=== PATIENT | female | born 1975 | race African-American/Black ===

== ENCOUNTER 2018-04-15 07:24 | Emergency (ER) | payer OTHER ==
[~2018-04-15] VITALS: Ht 170.2 cm; Wt 103.0 kg
[2018-04-15 07:32] VITALS: BP 143/86
[2018-04-15] MEDS ORDERED: Acetaminophen 500mg (ES) tab ORAL ONE (08:00)
[2018-04-15] MEDS ORDERED: Ketorolac 30mg Inj IV ONE (08:00)
[2018-04-15] MEDS ORDERED: Bicillin LA 1.2MMU/2ML SYR IM ONE (08:00)
[2018-04-15] MEDS ORDERED: Solu-MEDROL 125mg Inj IVP ONE (08:00)
--- NOTE | 2018-04-15 08:10 | Emergency Room Report ---
History of Present Illness General Chief Complaint: Flu Like Symptoms Source: Patient Present Illness HPI Patient complains of sore throat, ear pain, body aches and cough for the past 2 days. She denies nausea or vomiting. She denies chest pain or shortness of breath. She has had chills. She denies headache or neck pain. She denies abdominal pain. She denies dysuria or hematuria. She did get the the influenza vaccine. No other complaints. Allergies: Coded Allergies: No Known Allergies (Unverified , 04/15/18) Patient History Past Medical History: none, see triage record Past Surgical History: brian Social History: Denies: smoking, alcohol use, drug use Now: No Reviewed Nursing Documentation: PMH: Agreed; PSxH: Agreed Nursing Documentation-PMH Past Medical History: No History, Except For Review of Systems All Other Systems: negative except mentioned in HPI Physical Exam Vital Signs Date Time Temp Pulse Resp B/P (MAP) Pulse Ox O2 Delivery O2 Flow Rate FiO2 04/15/18 07:30 100.2 118 20 143/86 98 Room Air Sp02 EP Interpretation: reviewed, normal General Appearance: no apparent distress, alert, GCS 15, non-toxic Head: normocephalic, atraumatic Eyes: bilateral eye normal inspection, bilateral eye PERRL ENT: hearing grossly normal, no angioedema, normal voice, TMs + canals normal, moist mucus membranes, tonsillar swelling, pharyngeal erythema Neck: full range of motion, supple/symm/no masses Respiratory: chest non-tender, lungs clear, normal breath sounds, no respiratory distress, no retraction, no accessory muscle use, speaking full sentences Cardiovascular #1: regular rate, rhythm, no edema Gastrointestinal: normal bowel sounds, non tender, soft, non-distended, no guarding, no rebound Rectal: deferred Musculoskeletal: back normal, gait/station normal, normal range of motion, non- tender Neurologic: alert, oriented x3, responsive, motor strength/tone normal, sensory intact, speech normal Psychiatric: judgement/insight normal, memory normal, mood/affect normal, no suicidal/homicidal ideation Skin: normal color, no rash, warm/dry, well hydrated Medical Decision Making Diagnostic Impression: Primary Impression: Pharyngitis Additional Impressions: Tonsillitis Fever ER Course This patient has a clinical presentation consistent with pharyngitis with tonsillitis (kissing tonsils). There is no evidence of peritonsillar abscess or deep neck abscess. There is no airway edema. The patient is instructed to get [id number] lozenges and Cepacol throat spray. The patient was treated as a strep tonsillitis and was given IM penicillin and IV Solu-Medrol for the swelling. I will place the patient on a Medrol Dosepak and ibuprofen for an anti-inflammatory and pain medication. The patient was given return precautions and followup instructions. Influenza A/B negative. Monospot pending. Chest X-Ray Diagnostic Results Chest X-Ray Diagnostic Results : Chest X-Ray Ordered: Yes # of Views/Limited/Complete: 1 View Indication: Other - cough EP Interpretation: Yes Interpretation: no consolidation, no effusion, no pneumothorax, no acute cardiopulmonary disease Impression: No acute disease Electronically Signed by: Vidya Last Vital Signs Date Time Temp Pulse Resp B/P (MAP) Pulse Ox O2 Delivery O2 Flow Rate FiO2 04/15/18 07:30 100.2 118 20 143/86 98 Room Air Status: improved Disposition: HOME, SELF-CARE Condition: Improved Leslie Moya DO Apr 15, 2018 08:10
[2018-04-15] MEDS ORDERED: MEDROL DOSEPAK4 MG ORAL (10:27)
[2018-04-15] MEDS ORDERED: IBUPROFEN800 MG ORAL (10:27)
[2018-04-15 10:40] VITALS: BP 161/104
[2018-04-15 10:45] VITALS: BP 161/104
--- NOTE | 2018-04-15 11:06 | Diagnostic Imaging Report ---
Indication: Cough Technique: One view of the chest Comparison: Findings: Lungs and pleural spaces are clear. Heart size is normal Impression: No acute process
== END 2018-04-15 10:45 | disposition home or self-care (01) ==
LOC: EMR 07:56
DX: J02.9 Acute pharyngitis, unspecified (principal); J03.90 Acute tonsillitis, unspecified; R05 Cough; M79.10 Myalgia, unspecified site; H92.09 Otalgia, unspecified ear
CPT/HCPCS: 71045; 86710; 96361; 96372; 96374; 96375; 99284; J0561; J1885; J2930

== ENCOUNTER 2018-04-18 01:08 | Emergency (ER) | payer OTHER ==
[~2018-04-18] VITALS: Ht 170.2 cm; Wt 101.2 kg
[~2018-04-18 01:08] MED LIST: IBUPROFEN800 MG ORAL; MEDROL DOSEPAK4 MG ORAL
[2018-04-18 01:25] VITALS: BP 138/94
[2018-04-18] MEDS ORDERED: AUGMENTIN 875-1 EAC1 ORAL (01:39)
[2018-04-18] MEDS ORDERED: Augmentin 875mg Tab ORAL ONE (01:45)
[2018-04-18 04:16] VITALS: BP 129/88
[2018-04-18 04:18] VITALS: BP 129/88
--- NOTE | 2018-04-18 06:15 | Emergency Room Report ---
History of Present Illness General Chief Complaint: Sore Throat Source: Patient Present Illness HPI 42-year-old female presents ED for evaluation. Complaining of sore throat 3 days. 10 out of 10, throbbing, nonradiating. Hurts to swallow. Was seen here 3 days ago and was given penicillin shot and discharged with steroids. States that her symptoms are not improving. States is trouble swallowing. Trouble talking. Denies shortness of breath. No other aggravating relieving factors. Denies any other associated symptoms Allergies: Coded Allergies: No Known Allergies (Unverified , 04/15/18) Patient History Past Medical History: none Past Surgical History: none Pertinent Family History: none Social History: Denies: smoking, alcohol use, drug use Last Menstrual Period: 2003 Now: No Immunizations: UTD Reviewed Nursing Documentation: PMH: Agreed; PSxH: Agreed Nursing Documentation-PMH Past Medical History: No Stated History Review of Systems All Other Systems: negative except mentioned in HPI Physical Exam Vital Signs Date Time Temp Pulse Resp B/P (MAP) Pulse Ox O2 Delivery O2 Flow Rate FiO2 04/18/18 01:21 99.5 101 18 138/94 98 Room Air Sp02 EP Interpretation: reviewed, normal General Appearance: no apparent distress, alert, GCS 15, non-toxic Head: normocephalic Eyes: bilateral eye normal inspection, bilateral eye PERRL ENT: hearing grossly normal, no angioedema, normal voice, TMs + canals normal, uvula midline, tonsillar swelling, pharyngeal erythema Neck: full range of motion, supple, no meningismus, supple/symm/no masses Respiratory: chest non-tender, lungs clear, normal breath sounds, speaking full sentences Cardiovascular #1: normal inspection Gastrointestinal: normal inspection Rectal: deferred Genitourinary: no CVA tenderness Musculoskeletal: normal inspection Neurologic: alert, oriented x3, responsive, motor strength/tone normal, sensory intact, speech normal Psychiatric: normal inspection Skin: normal inspection Lymphatic: normal inspection Medical Decision Making Diagnostic Impression: Primary Impression: Pharyngitis Qualified Codes: J02.9 - Acute pharyngitis, unspecified ER Course Hospital Course 42-year-old female presents to ED complaining of sore throat Differential diagnoses include: URI, pharyngitis, otitis media Clinical course Patient placed on stretcher. After initial history, physical exam reveals a female in no acute distress. Bilateral TM unremarkable. There is pharyngeal erythema w/ tonsillar swelling. + lymphadenopathy. Given the symptoms do not improve with IM penicillin and steroids I will order a soft tissue neck x-ray to rule out retropharyngeal abscess X-ray shows no evidence of retropharyngeal abscess. Reassurance given to patient. Given Augmentin here. We'll discharge with Augmentin. Recommend close follow-up with PMD. Recommend ENT as outpatient Diagnosis - pharyngitis Stable and discharged home with prescriptions for augmentin. Instructed to followup with PMD. return to ED if symptoms recur or worsen Last Vital Signs Date Time Temp Pulse Resp B/P (MAP) Pulse Ox O2 Delivery O2 Flow Rate FiO2 04/18/18 04:18 99.1 87 18 129/88 99 Room Air Status: improved Disposition: HOME, SELF-CARE Condition: Stable Scripts Amoxicillin/Potassium Clav 875-125* (AUGMENTIN 875-125 TABLET*) 1 Each Tablet 1 TAB ORAL TWICE A DAY for 10 Days, TAB Prov: Kyle Mace MD 04/18/18 Referrals: [facility]ERR[facility] (PCP) Patient Instructions: Tonsillitis Kyle Mace MD Apr 18, 2018 06:14
--- NOTE | 2018-04-18 10:39 | Diagnostic Imaging Report ---
Indication: Pain and swelling in tonsils for one week Technique: 2 views of the neck with soft tissue technique Comparison: none Findings: No prevertebral soft tissue swelling. No epiglottic enlargement or glottic narrowing. No hypopharyngeal distention. No radiopaque foreign body. Impression: Negative This agrees with the preliminary interpretation provided overnight by [facility] teleradiology service.
== END 2018-04-18 04:19 | disposition home or self-care (01) ==
LOC: EMR 01:46
DX: J02.9 Acute pharyngitis, unspecified (principal)
CPT/HCPCS: 70360; 99283

== ENCOUNTER 2018-04-21 21:10 | Emergency (ER) | payer OTHER ==
[~2018-04-21] VITALS: Ht 170.2 cm; Wt 113.4 kg
[~2018-04-21 21:10] MED LIST changes: +AUGMENTIN 875-1 EAC1 ORAL
--- NOTE | 2018-04-21 21:19 | Emergency Room Report ---
History of Present Illness General Chief Complaint: Dyspnea/Respdistress Source: Patient, Medical Record Present Illness HPI This a 42-year-old female with history anxiety and cholecystectomy. She presents with chief complaint of shortness of breath, abdominal pain, and back pain. She was treated for pharyngitis/strep throat a week ago. Was placed on Augmentin and steroid. She still feeling hoarseness and sore throat. The last few days she's complaining of back pain. Worse with movement. No fever chills but no nausea no vomiting. Now with abdominal pain and feeling short of breath. Onset today. Pain is 9 out of 10. Nothing made it better. Movement makes it worse. No other complaint. Allergies: Coded Allergies: No Known Allergies (Unverified , 04/15/18) Patient History Past Medical History: see triage record, old chart reviewed, psych hx Past Surgical History: brian Pertinent Family History: none Social History: Denies: smoking Last Menstrual Period: n/a Now: No Immunizations: other Reviewed Nursing Documentation: PMH: Agreed; PSxH: Agreed Review of Systems Eye: Denies: eye pain, blurred vision ENT: Denies: ear pain, nose congestion, throat swelling Respiratory: Reports: shortness of breath; Denies: cough Cardiovascular: Denies: chest pain, palpitations Gastrointestinal: Reports: abdominal pain; Denies: diarrhea, nausea, vomiting Musculoskeletal: Reports: back pain; Denies: joint pain Skin: Denies: rash Neurological: Denies: headache, numbness Endocrine: Denies: increased thirst, increased urine Hematologic/Lymphatic: Denies: easy bruising All Other Systems: negative except mentioned in HPI Physical Exam vital signs unremarkable Sp02 EP Interpretation: reviewed, normal General Appearance: well appearing, no apparent distress, alert, obese Head: normocephalic, atraumatic Eyes: bilateral eye PERRL, bilateral eye EOMI ENT: hearing grossly normal, normal pharynx Neck: full range of motion, supple, no meningismus Respiratory: chest non-tender, lungs clear, normal breath sounds Cardiovascular #1: regular rate, rhythm, no murmur Gastrointestinal: normal bowel sounds, non tender, no mass, no organomegaly, no bruit, non-distended Musculoskeletal: back normal - Right flank tenderness, gait/station normal, normal range of motion Neurologic: alert, oriented x3 Psychiatric: anxious Skin: warm/dry Medical Decision Making Diagnostic Impression: Primary Impression: Dyspnea Qualified Codes: R06.00 - Dyspnea, unspecified Additional Impressions: Abdominal pain Qualified Codes: R10.84 - Generalized abdominal pain Back pain Qualified Codes: M54.6 - Pain in thoracic spine ER Course Patient with dyspnea. This is most likely anxiety related since she was hyperventilating. Better after Ativan. Lungs are clear. No evidence of ACS, PE, dissection to name a few. Abdominal exam is also benign. No evidence of infection. We'll discharge home. Chest X-Ray Diagnostic Results Chest X-Ray Diagnostic Results : Chest X-Ray Ordered: Yes # of Views/Limited/Complete: 1 View Indication: Chest Pain EP Interpretation: Yes Interpretation: no consolidation, no effusion, no pneumothorax, no acute cardiopulmonary disease Impression: No acute disease Electronically Signed by: Dionte Mcmahon MD Status: improved Disposition: HOME, SELF-CARE Condition: Stable Scripts Ibuprofen* (MOTRIN*) 600 Mg Tablet 600 MG ORAL THREE TIMES A DAY, #30 TAB 0 Refills Prov: Dionte Mcmahon MD 04/21/18 Patient Instructions: Shortness of Breath, [id number] Additional Instructions: Follow-up with your doctor in 7 days. Return if symptom worsen. Dionte Mcmahon MD Apr 21, 2018 21:19
[2018-04-21] MEDS ORDERED: Ketorolac 30mg Inj IV ONE (21:30)
[2018-04-21] MEDS ORDERED: LORazepam Inj 2mg/ml 1ml IV ONE (21:30)
[2018-04-21 21:49] LABS: APPEARANCE,URINE CLEAR; BASOPHILS % (AUTO) 0.7 % (0.0-2.0); BILIRUBIN, URINE NEGATIVE (NEGATIVE); EOSINOPHILS % (AUTO) 1.8 % (0.0-3.0); GLUCOSE, URINE (UA) NEGATIVE (NEGATIVE); HEMATOCRIT 38.7 % (37.0-47.0); HEMOGLOBIN 12.5 G/DL (12.0-16.0); KETONES,URINE NEGATIVE (NEGATIVE); LEUKOCYTE ESTERASE ,URINE 1+ (NEGATIVE); LYMPHOCYTES % (AUTO) 42.2 % (20.0-45.0); MEAN CORPUSCULAR VOLUME 84 FL (80-99); MONOCYTES % (AUTO) 12.5 % (1.0-10.0); NEUTROPHILS % (AUTO) 42.8 % (45.0-75.0); NITRITE,URINE NEGATIVE (NEGATIVE); PH,URINE 7 (4.5-8.0); PLATELET COUNT 339 K/UL (150-450); PROTEIN,URINE 1+ (NEGATIVE); RED BLOOD COUNT 4.62 M/UL (4.20-5.40); UROBILINOGEN,URINE 4 MG/DL (0.0-1.0); WHITE BLOOD COUNT 3.9 K/UL (4.8-10.8)
[2018-04-21 21:53] LABS: COLOR,URINE YELLOW
[2018-04-21 22:06] LABS: ANION GAP 11 mmol/L (5-15); BLOOD UREA NITROGEN 9 mg/dL (7-18); CARBON DIOXIDE 28 MMOL/L (21-32); CHLORIDE 95 MMOL/L (98-107); CREATININE 0.8 MG/DL (0.55-1.30); POTASSIUM 3.2 MMOL/L (3.5-5.1); SODIUM 134 MMOL/L (136-145)
[2018-04-21 22:10] LABS: ALANINE AMINOTRANSFERASE 52 U/L (12-78); ALBUMIN 3.4 G/DL (3.4-5.0); ALBUMIN/GLOBULIN RATIO 0.6 (1.0-2.7); ALKALINE PHOSPHATASE 133 U/L (46-116); ASPARTATE AMINO TRANSFERASE 52 U/L (15-37)
[2018-04-21 22:45] VITALS: BP 146/85
[2018-04-21] MEDS ORDERED: IBUPROFEN600 MG ORAL (23:05)
[2018-04-21 23:21] VITALS: BP 146/85
--- NOTE | 2018-04-22 10:56 | Diagnostic Imaging Report ---
Indication: Shortness of breath Technique: One view of the chest Comparison: 04/15/2018 Findings: No acute infiltrates, effusions, or congestion. Tortuous calcified aorta. Normal heart size. Upper mediastinum unremarkable. Impression: No acute process.
== END 2018-04-21 23:26 | disposition home or self-care (01) ==
LOC: EMR 21:41
DX: R06.00 Dyspnea, unspecified (principal); R10.84 Generalized abdominal pain; M54.9 Dorsalgia, unspecified; F41.9 Anxiety disorder, unspecified; Z90.49 Acquired absence of other specified parts of digestive tract
CPT/HCPCS: 36415; 71045; 80053; 81003; 81025; 83690; 85025; 96361; 96374; 96375; 99284; J1885

== ENCOUNTER 2018-07-06 09:07 | Emergency (ER) | payer OTHER ==
[~2018-07-06] VITALS: Ht 170.2 cm; Wt 90.7 kg
[~2018-07-06 09:07] MED LIST changes: +IBUPROFEN600 MG ORAL
[2018-07-06] MEDS ORDERED: LORAZEPAM0.5 MG ORAL (09:21)
--- NOTE | 2018-07-06 09:28 | NUR ---
ED Nurse Note: Patient came in due to palpitations and chest pain started this morning. Pt states that she felt her "heart racing". Pt has hx of anxiety and taking ativan at home. Unknown trigger. Pt is AAO x4, ambulates with steady gait with non labored breathing. Attached to manager cardiac cath and NSR.
--- NOTE | 2018-07-06 09:50 | NUR ---
ED Nurse Note: Blood drawn and sent. Warm blankets were provided.
[2018-07-06 09:51] VITALS: BP 120/87
[2018-07-06 09:59] LABS: HEMATOCRIT 34.8 % (37.0-47.0); HEMOGLOBIN 11.4 G/DL (12.0-16.0); MEAN CORPUSCULAR VOLUME 92 FL (80-99); PLATELET COUNT 272 K/UL (150-450); RED BLOOD COUNT 3.79 M/UL (4.20-5.40); RED CELL DISTRIBUTION WIDTH 16.7 % (11.6-14.8); WHITE BLOOD COUNT 2.4 K/UL (4.8-10.8)
[2018-07-06 10:08] LABS: ANION GAP 13 mmol/L (5-15); BLOOD UREA NITROGEN 10 mg/dL (7-18); CALCIUM 8.6 MG/DL (8.5-10.1); CARBON DIOXIDE 25 MMOL/L (21-32); CHLORIDE 100 MMOL/L (98-107); CREATININE 0.9 MG/DL (0.55-1.30); POTASSIUM 3.5 MMOL/L (3.5-5.1); SODIUM 138 MMOL/L (136-145)
[2018-07-06 10:13] LABS: ALANINE AMINOTRANSFERASE 133 U/L (12-78); ALBUMIN 3.4 G/DL (3.4-5.0); ALBUMIN/GLOBULIN RATIO 0.8 (1.0-2.7); ALKALINE PHOSPHATASE 108 U/L (46-116); ASPARTATE AMINO TRANSFERASE 315 U/L (15-37); BILIRUBIN,TOTAL 0.9 MG/DL (0.2-1.0)
--- NOTE | 2018-07-06 10:15 | NUR ---
ED Nurse Note: Pt is more relaxed and stable at this time. Denies CP. VSS.
[2018-07-06 10:54] VITALS: BP 132/76
--- NOTE | 2018-07-06 10:54 | NUR ---
ER Nurse Note: Pt cleared for discharge by ER MD. DC instructions was gien and explained to pt and verbalized understanding of teachings. All medical devices such as ID band/IV removed. Pt AAO x4, ambulatory and left with all personal belongings.
--- NOTE | 2018-07-06 13:49 | Emergency Room Report ---
History of Present Illness General Chief Complaint: Chest Pain Source: Patient Present Illness HPI 42-year-old female presents to ED for evaluation. Complaining of palpitations and chest pain area started this morning. Note some palpitations at this time. Denies any chest pain at this time. Pain was 5 out of 10, dull, nonradiating. States she has history of anxiety. Was recently started on Ativan for her anxiety. Denies smoking or drug use. Denies a history of hypertension or diabetes. No other aggravating relieving factors. Denies any other associated symptoms Allergies: Coded Allergies: No Known Allergies (Unverified , 04/15/18) Patient History Past Medical History: psych hx Past Surgical History: none Pertinent Family History: none Social History: Denies: smoking, alcohol use, drug use Last Menstrual Period: 2013/Depo shot Now: No Immunizations: UTD Reviewed Nursing Documentation: PMH: Agreed; PSxH: Agreed Nursing Documentation-PMH Past Medical History: No History, Except For Review of Systems All Other Systems: negative except mentioned in HPI Physical Exam Vital Signs Date Time Temp Pulse Resp B/P (MAP) Pulse Ox O2 Delivery O2 Flow Rate FiO2 07/06/18 09:18 98.4 106 16 140/97 100 Room Air Sp02 EP Interpretation: reviewed, normal General Appearance: no apparent distress, alert, GCS 15, non-toxic Head: normocephalic, atraumatic Eyes: bilateral eye normal inspection, bilateral eye PERRL ENT: hearing grossly normal, normal pharynx, no angioedema, normal voice Neck: full range of motion, supple/symm/no masses Respiratory: chest non-tender, lungs clear, normal breath sounds, speaking full sentences Cardiovascular #1: regular rate, rhythm, no edema Cardiovascular #2: 2+ carotid (R), 2+ carotid (L), 2+ radial (R), 2+ radial (L) , 2+ dorsalis pedis (R), 2+ dorsalis pedis (L) Gastrointestinal: normal bowel sounds, non tender, soft, non-distended, no guarding, no rebound Rectal: deferred Genitourinary: normal inspection, no CVA tenderness Musculoskeletal: back normal, gait/station normal, normal range of motion, non- tender Neurologic: alert, oriented x3, responsive, motor strength/tone normal, sensory intact, speech normal Psychiatric: judgement/insight normal, memory normal, mood/affect normal, no suicidal/homicidal ideation Reflexes: 3+ bicep (R), 3+ bicep (L), 3+ tricep (R), 3+ tricep (L), 3+ knee (R) , 3+ knee (L) Skin: normal color, no rash, warm/dry, well hydrated Lymphatic: no adenopathy Medical Decision Making Diagnostic Impression: Primary Impression: Palpitations ER Course Hospital Course 42-year-old F presents ED complaining of palpitations Differential diagnoses include: afib, Vtach, SVT, anxiety, dehydration Clinical course Patient placed on stretcher. After initial history and physical I ordered labs , EKG, IVFs. labs reviewed- all electrolytes normal, troponins negative, no leukocytosis, hemoglobin/hematocrit stable EKG - NSR, no acute ischemic changes interpreted by me Discussed findings with patient. Reassurance given. There are no cardiac risk factors. Blood pressure heart rate within normal limits during ED course. Troponins negative. EKG normal. Likely anxiety. Safe for discharge close outpatient follow-up. States she has a PMD I. I feel this is a highly complex case requiring extensive working including EKG/Rhythm strip, Xray/CT/US, Blood/urine lab work, repeat exams while in ED, and administration of strong opiates/narcotics for pain control, admission to hospital or close patient follow up. Diagnosis - palpitations Stable and discharged to home. Instructed to followup with PMD. Return to ED if symptoms recur or worsen Labs Test 07/06/18 09:38 White Blood Count 2.4 K/UL (4.8-10.8) Red Blood Count 3.79 M/UL (4.20-5.40) Hemoglobin 11.4 G/DL (12.0-16.0) Hematocrit 34.8 % (37.0-47.0) Mean Corpuscular Volume 92 FL (80-99) Mean Corpuscular Hemoglobin 30.1 PG (27.0-31.0) Mean Corpuscular Hemoglobin Concent 32.8 G/DL (32.0-36.0) Red Cell Distribution Width 16.7 % (11.6-14.8) Platelet Count 272 K/UL (150-450) Mean Platelet Volume 6.2 FL (6.5-10.1) Neutrophils (%) (Auto) % (45.0-75.0) Lymphocytes (%) (Auto) % (20.0-45.0) Monocytes (%) (Auto) % (1.0-10.0) Eosinophils (%) (Auto) % (0.0-3.0) Basophils (%) (Auto) % (0.0-2.0) Differential Total Cells Counted 100 Neutrophils % (Manual) 39 % (45-75) Lymphocytes % (Manual) 55 % (20-45) Monocytes % (Manual) 6 % (1-10) Eosinophils % (Manual) 0 % (0-3) Basophils % (Manual) 0 % (0-2) Band Neutrophils 0 % (0-8) Platelet Estimate Adequate Platelet Morphology Normal Anisocytosis 1+ Sodium Level 138 MMOL/L (136-145) Potassium Level 3.5 MMOL/L (3.5-5.1) Chloride Level 100 MMOL/L (98-107) Carbon Dioxide Level 25 MMOL/L (21-32) Anion Gap 13 mmol/L (5-15) Blood Urea Nitrogen 10 mg/dL (7-18) Creatinine 0.9 MG/DL (0.55-1.30) Estimat Glomerular Filtration Rate > 60 mL/min (>60) Glucose Level 159 MG/DL (74-106) Calcium Level 8.6 MG/DL (8.5-10.1) Total Bilirubin 0.9 MG/DL (0.2-1.0) Aspartate Amino Transf (AST/SGOT) 315 U/L (15-37) Alanine Aminotransferase (ALT/SGPT) 133 U/L (12-78) Alkaline Phosphatase 108 U/L (46-116) Troponin I 0.000 ng/mL (0.000-0.056) Total Protein 7.5 G/DL (6.4-8.2) Albumin 3.4 G/DL (3.4-5.0) Globulin 4.1 g/dL Albumin/Globulin Ratio 0.8 (1.0-2.7) EKG Diagnostic Results Rate: normal Rhythm: NSR ST Segments: no acute changes ASA given to the pt in ED: No Rhythm Strip Diag. Results EP Interpretation: yes Rhythm: NSR, no PVC's, no ectopy Last Vital Signs Date Time Temp Pulse Resp B/P (MAP) Pulse Ox O2 Delivery O2 Flow Rate FiO2 07/06/18 10:54 98.0 85 15 132/76 99 Room Air Status: improved Disposition: HOME, SELF-CARE Condition: Stable Patient Instructions: Palpitations, [id number] Kyle Mace MD Jul 06, 2018 13:49
--- NOTE | 2018-07-09 15:39 | Cardiology Report ---
APPROVED REPORT EKG Measurement Heart [id number] Normal sinus rhythm Cannot rule out Anterior infarct, age undetermined Abnormal ECG
== END 2018-07-06 10:54 | disposition home or self-care (01) ==
LOC: EMR 09:30
DX: R00.2 Palpitations (principal); R07.9 Chest pain, unspecified
CPT/HCPCS: 36415; 80053; 84484; 85007; 85025; 93005; 96360; 99284

== ENCOUNTER 2019-11-16 01:28 | Emergency (ER) | payer MEDICAID, OTHER ==
[~2019-11-16] VITALS: Ht 170.2 cm; Wt 95.7 kg
[~2019-11-16 01:28] MED LIST changes: +CYCLOBENZAPRINE10 MG ORAL; +IBU800 MG PO; +LIDODERM700 M1 TOPIC; +LORAZEPAM0.5 MG ORAL
--- NOTE | 2019-11-16 01:50 | NUR ---
ED Nurse Note: blood and urine collected and sent to lab
--- NOTE | 2019-11-16 01:53 | Emergency Room Report ---
History of Present Illness General Chief Complaint: Abdominal Pain Source: Patient Present Illness HPI This is a 44-year-old female who presents with chief plaint abdominal pain. Most of the pain is epigastric area. This been going on for 2 months. She saw her doctor already. Stool sample was positive for H. pylori and she was treated with antibiotics. She had a CAT scan a month ago and was negative. She is scheduled to see GI doctor next week. She came in tonight because pain was getting worse. Pain is sharp in nature. 10 out of 10. No nausea no vomiting. No fever chills. Nothing made it better. Nothing made it worse. No urinary complaint. Allergies: Coded Allergies: No Known Allergies (Unverified , 04/15/18) COVID-19 Screening Contact w/high risk pt: No Recent Travel to affected area: No Experienced COVID-19 symptoms?: No COVID-19 Testing performed ANIMAL FEEDER: No Patient History Past Medical History: see triage record, old chart reviewed Past Surgical History: other - Gastric bypass Pertinent Family History: none Social History: Denies: smoking Now: No Immunizations: other Reviewed Nursing Documentation: PMH: Agreed; PSxH: Agreed Nursing Documentation-PMH Hx Diabetes: No - hypothirodism Review of Systems Eye: Denies: eye pain, blurred vision ENT: Denies: ear pain, nose congestion, throat swelling Respiratory: Denies: cough, shortness of breath Cardiovascular: Denies: chest pain, palpitations Gastrointestinal: Reports: abdominal pain; Denies: diarrhea, nausea, vomiting Musculoskeletal: Denies: back pain, joint pain Skin: Denies: rash Neurological: Denies: headache, numbness Endocrine: Denies: increased thirst, increased urine Hematologic/Lymphatic: Denies: easy bruising All Other Systems: negative except mentioned in HPI Physical Exam Vital Signs Date Time Temp Pulse Resp B/P (MAP) Pulse Ox O2 Delivery O2 Flow Rate FiO2 11/16/19 01:36 99.1 109 22 139/82 (101) 98 Room Air Vitals normal Sp02 EP Interpretation: reviewed, normal General Appearance: well appearing, no apparent distress, alert, obese Head: normocephalic, atraumatic Eyes: bilateral eye PERRL, bilateral eye EOMI ENT: hearing grossly normal, normal pharynx Neck: full range of motion, supple, no meningismus Respiratory: chest non-tender, lungs clear, normal breath sounds Cardiovascular #1: regular rate, rhythm, no murmur Gastrointestinal: normal bowel sounds, no mass, no organomegaly, no bruit, non- distended, tenderness - Epigastric Musculoskeletal: back normal, normal range of motion, gait/station normal Psychiatric: mood/affect normal Medical Decision Making Diagnostic Impression: Primary Impression: Abdominal pain Qualified Codes: R10.13 - Epigastric pain Additional Impressions: Hypokalemia Elevated liver enzymes ER Course Patient with abdominal pain. No evidence of any obstruction or infection. No acute abdomen. Will discharge home. CT/MRI/US Diagnostic Results CT/MRI/US Diagnostic Results : Imaging Test Ordered: CT abdomen pelvis Impression Read by radiologist. Status post Elizabeth-en-Y surgery. No acute process. Last Vital Signs Date Time Temp Pulse Resp B/P (MAP) Pulse Ox O2 Delivery O2 Flow Rate FiO2 11/16/19 01:36 99.1 109 22 139/82 (101) 98 Room Air Status: improved Disposition: HOME, SELF-CARE Condition: Stable Scripts Hydrocodone/Acetaminophen 5-325* (HYDROCODONE/ACETAMINOPHEN 5-325*) 1 Each Tablet 1 TAB ORAL Q6H PRN for For Pain, #15 TAB 0 Refills Prov: Dionte Mcmahon MD 11/16/19 Omeprazole Magnesium (PRILOSEC OTC) 20 Mg Tablet. 20 MG ORAL DAILY, #30 TAB Prov: Dionte Mcmahon MD 11/16/19 Patient Instructions: Abdominal Pain, Adult Additional Instructions: Follow-up with your doctor in 7 days. Keep your appointment with your GI doctor for endoscopy. Return if symptoms worsen. Dionte Mcmahon MD Nov 16, 2019 01:53
[2019-11-16] MEDS ORDERED: Pantoprazole Inj IV ONE (02:00)
[2019-11-16] MEDS ORDERED: HYDROmorphone 1mg/ml Carpuject IVP ONE (02:00)
--- NOTE | 2019-11-16 02:00 | NUR ---
ED Nurse Note: pt went for ct
[2019-11-16 02:04] VITALS: BP 138/101
--- NOTE | 2019-11-16 02:15 | NUR ---
ED Nurse Note: pt back from ct
--- NOTE | 2019-11-16 02:37 | Diagnostic Imaging Report ---
EXAM: CT Abdomen and Pelvis Without Intravenous Contrast CLINICAL HISTORY: ABD PAIN TECHNIQUE: Axial computed tomography images of the abdomen and pelvis without intravenous contrast. CTDI is 12 mGy and DLP is 664 mGy-cm. One or more of the following dose reduction techniques were used: automated exposure control, adjustment of the mA and/or kV according to patient size, use of iterative reconstruction technique. Coronal and sagittal reformatted images were created and reviewed. COMPARISON: No relevant prior studies available. FINDINGS: Lung bases: Unremarkable. No mass. No consolidation. ABDOMEN: Liver: Hepatic steatosis, correlate to exclude steatohepatitis. Hepatic segment VII enhancing 1.9 focus of uncertain significance, recommend pelvic patient MRI abdomen without and with IV contrast. Further characterize. Gallbladder and bile ducts: Cholecystectomy. No ductal dilation. Pancreas: Unremarkable. No ductal dilation. Spleen: Unremarkable. No splenomegaly. Adrenals: Unremarkable. No mass. Kidneys and ureters: Unremarkable. No obstructing stones. No hydronephrosis. Stomach and bowel: Elizabeth-en-Y gastric bypass anatomy. No obstruction. No mucosal thickening. PELVIS: Appendix: No findings to suggest acute appendicitis. Bladder: Unremarkable. No stones. Reproductive: Unremarkable as visualized. ABDOMEN and PELVIS: Intraperitoneal space: Mild hazy mesenteric attenuation in the left mesentery is likely incidental and of likely no clinical significance, but could rarely represent focal proliferative disorder. Recommend follow- up IV and oral contrast-enhanced CT abdomen and pelvis in 6 months to document stability over time. No free air. No significant fluid collection. Bones/joints: No acute fracture. No dislocation. Soft tissues: Unremarkable. Vasculature: Unremarkable. No abdominal aortic aneurysm. Lymph nodes: Prominent mesenteric lymph nodes. This could be incidental, reactive, or could represent mesenteric adenitis in the proper context. IMPRESSION: 1. Elizabeth-en-Y gastric bypass anatomy. 2. Prominent mesenteric lymph nodes. This could be incidental, reactive, or could represent mesenteric adenitis in the proper context. 3. Mild hazy mesenteric attenuation in the left mesentery is likely incidental and of likely no clinical significance, but could rarely represent focal proliferative disorder. Recommend follow-up IV and oral contrast-enhanced CT abdomen and pelvis in 6 months to document stability over time. 4. Otherwise no acute abnormality definitively identified to account for patient presentation. 5. Hepatic segment VII enhancing 1.9 focus of uncertain significance, recommend pelvic patient MRI abdomen without and with IV contrast to further characterize. Considerations include adenoma, FNH, hemangioma. 6. Hepatic steatosis, correlate to exclude steatohepatitis. 7. Cholecystectomy.
[2019-11-16 03:00] LABS: BASOPHILS % (AUTO) 1.3 % (0.0-2.0); EOSINOPHILS % (AUTO) 0.8 % (0.0-3.0); HEMATOCRIT 37.8 % (37.0-47.0); HEMOGLOBIN 12.2 G/DL (12.0-16.0); LYMPHOCYTES % (AUTO) 48.7 % (20.0-45.0); MEAN CORPUSCULAR VOLUME 102 FL (80-99); MONOCYTES % (AUTO) 7.3 % (1.0-10.0); PLATELET COUNT 305 K/UL (150-450); RED BLOOD COUNT 3.69 M/UL (4.20-5.40); RED CELL DISTRIBUTION WIDTH 12.4 % (11.6-14.8); WHITE BLOOD COUNT 5.4 K/UL (4.8-10.8)
[2019-11-16 03:06] LABS: APPEARANCE,URINE CLEAR; BILIRUBIN, URINE NEGATIVE (NEGATIVE); GLUCOSE, URINE (UA) NEGATIVE (NEGATIVE); KETONES,URINE NEGATIVE (NEGATIVE); LEUKOCYTE ESTERASE ,URINE 1+ (NEGATIVE); NITRITE,URINE NEGATIVE (NEGATIVE); PH,URINE 6 (4.5-8.0); PROTEIN,URINE NEGATIVE (NEGATIVE); UROBILINOGEN,URINE 1 MG/DL (0.0-1.0)
[2019-11-16] MEDS ORDERED: PRILOSEC OTC20 MG ORAL (03:09)
[2019-11-16] MEDS ORDERED: HYDROCODON-ACE1 EA15 ORAL (03:09)
[2019-11-16 03:16] LABS: COLOR,URINE YELLOW
[2019-11-16] MEDS ORDERED: Morphine Sulfate 4mg/ml Inj (IV USE ONLY) IVP ONE (03:30)
[2019-11-16 03:35] VITALS: BP 137/77
[2019-11-16 03:38] LABS: BLOOD UREA NITROGEN 5 mg/dL (7-18); CARBON DIOXIDE 22 MMOL/L (21-32); CHLORIDE 106 MMOL/L (98-107); CREATININE 0.8 MG/DL (0.55-1.30); SODIUM 144 MMOL/L (136-145)
[2019-11-16 03:39] LABS: ALANINE AMINOTRANSFERASE 101 U/L (12-78); ALBUMIN 2.9 G/DL (3.4-5.0); ASPARTATE AMINO TRANSFERASE 220 U/L (15-37); CALCIUM 8.1 MG/DL (8.5-10.1)
[2019-11-16 03:40] LABS: ALBUMIN/GLOBULIN RATIO 0.7 (1.0-2.7); ALKALINE PHOSPHATASE 176 U/L (46-116); ANION GAP 16 mmol/L (5-15)
[2019-11-16 03:57] LABS: POTASSIUM 2.5 MMOL/L (3.5-5.1)
[2019-11-16 04:08] VITALS: BP 137/77
--- NOTE | 2019-11-16 04:08 | NUR ---
ER DISCHARGE NOTE: Patient is cleared to be discharged per ERMD, pt is aox4, on room air, with stable vital signs. pt was given dc and prescription instructions, pt was able to verbalize understanding, pt id band and iv site removed without complications. pt is able to ambulate with steady gait. pt took all belongings.
== END 2019-11-16 04:08 | disposition home or self-care (01) ==
LOC: EMR 01:55
DX: R10.13 Epigastric pain (principal); E87.6 Hypokalemia; R94.5 Abnormal results of liver function studies; E66.9 Obesity, unspecified; Z98.84 Bariatric surgery status; E03.9 Hypothyroidism, unspecified; Z68.33 Body mass index [BMI] 33.0-33.9, adult
CPT/HCPCS: 36415; 74176; 80053; 81003; 81025; 83690; 85025; 96361; 96374; 96375; J1170; J2270; J2405; J7030; S0164; Z7502; 99284; J8499

== ENCOUNTER 2020-02-03 12:45 | Emergency (ER) | payer OTHER ==
[~2020-02-03] VITALS: Ht 162.6 cm; Wt 97.1 kg
[~2020-02-03 12:45] MED LIST changes: +HYDROCODON-ACE1 EA15 ORAL; +PRILOSEC OTC20 MG ORAL
[2020-02-03 12:51] VITALS: BP 122/84
--- NOTE | 2020-02-03 12:52 | NUR ---
ED Nurse Note: PT walked in to ed for C/O swelling to left foot since 01/29/20. pt was told by her PMD (dr Cho) to come in [facility] to get her kidney function and other labs checked.
--- NOTE | 2020-02-03 13:19 | NUR ---
ED Nurse Note: blood and urine sample collected and sent to lab
[2020-02-03 13:42] LABS: BASOPHILS % (AUTO) 0.6 % (0.0-2.0); EOSINOPHILS % (AUTO) 0.1 % (0.0-3.0); HEMATOCRIT 33.2 % (37.0-47.0); HEMOGLOBIN 10.9 G/DL (12.0-16.0); LYMPHOCYTES % (AUTO) 21.9 % (20.0-45.0); MEAN CORPUSCULAR VOLUME 102 FL (80-99); MONOCYTES % (AUTO) 8.4 % (1.0-10.0); NEUTROPHILS % (AUTO) 69.1 % (45.0-75.0); PLATELET COUNT 214 K/UL (150-450); RED BLOOD COUNT 3.26 M/UL (4.20-5.40); RED CELL DISTRIBUTION WIDTH 13.4 % (11.6-14.8); WHITE BLOOD COUNT 9.4 K/UL (4.8-10.8)
--- NOTE | 2020-02-03 13:50 | Emergency Room Report ---
History of Present Illness General Chief Complaint: Edema Source: Patient (Bina Ojeda) Present Illness HPI 44-year-old female presents to the emergency department for evaluation of left leg swelling x1 week. Patient was seen by her primary care provider whom did u rinalysis and was concerned for her renal function and sent her to the emergency department for evaluation. Patient reports history of high blood pressure she takes an unknown medication. Patient also reports history of migraines she states she has been taking Tylenol with no relief of her current headache which is 8 out of 10 severity. She reports hx of migraines and reports this MULLINS is the same in character however not responding to oral Tylenol. Patient denies fevers or chills, nausea, vomiting, recent head injury, dizziness, neck pain/stiffness, chest pain or palpitations. Patient denies cardiac history. Patient reports she initially was evaluated by PCP for dark-colored urine. She denies dysuria, urinary frequency, urgency, or hematuria. She denies abdominal pain or tenderness. Pt. reports previously ETOH dependent, but has ceased x 3 months. (Bina Ojeda) Allergies: Coded Allergies: No Known Allergies (Unverified , 04/15/18) COVID-19 Screening Contact w/high risk pt: No Recent Travel to affected area: No Experienced COVID-19 symptoms?: No COVID-19 Testing performed PHOTOVOL[employer]IC POWER SYSTEMS ENGINEER: No (Bian Ojeda) Patient History Past Medical History: see triage record Past Surgical History: none Pertinent Family History: none Now: No Reviewed Nursing Documentation: PMH: Agreed; PSxH: Agreed (Bina Ojeda) Nursing Documentation-PMH Past Medical History: No History, Except For Hx Hypertension: Yes Hx Diabetes: No - hypothirodism (Bina Ojeda) Review of Systems All Other Systems: negative except mentioned in HPI (Bina Ojeda) Physical Exam Vital Signs Date Time Temp Pulse Resp B/P (MAP) Pulse Ox O2 Delivery O2 Flow Rate FiO2 02/03/20 12:46 97.7 96 19 116/83 (94) 100 Room Air Sp02 EP Interpretation: reviewed, normal General Appearance: no apparent distress, alert, GCS 15, non-toxic Head: normocephalic, atraumatic Eyes: bilateral eye normal inspection, bilateral eye PERRL ENT: hearing grossly normal, normal voice Neck: full range of motion Respiratory: chest non-tender, lungs clear, normal breath sounds, speaking full sentences Cardiovascular #1: regular rate, rhythm, normal capillary refill, edema - 1+ non pitting edema of the left LE Cardiovascular #2: 2+ dorsalis pedis (R), 2+ dorsalis pedis (L) Gastrointestinal: normal bowel sounds, non tender, soft, no guarding, no rebound, other - mild abdominal distention without tenderness Genitourinary: normal inspection, no CVA tenderness Musculoskeletal: back normal, normal range of motion, gait/station normal, non- tender, swelling - Left LE, non -pitting, no warmth/erythema Neurologic: alert, motor strength/tone normal, oriented x3, sensory intact, responsive, speech normal, grossly normal, no focal defects Psychiatric: judgement/insight normal Skin: no rash, normal color (Bina Ojeda) Medical Decision Making PA Attestation Dr. Moya Is my supervising Physician whom patient management has been discussed with. (Bina Ojeda) Diagnostic Impression: Primary Impression: Hepatitis Additional Impressions: Hypokalemia Leg edema, left Elevated INR ER Course [id number] female presents to the emergency department for evaluation of left leg swelling x1 week. Patient was seen by her primary care provider whom did urinalysis and was concerned for her renal function and sent her to the emergency department for evaluation. Patient reports history of high blood pressure she takes an unknown medication. Patient also reports history of migraines she states she has been taking Tylenol with no relief of her current headache which is 8 out of 10 severity. She reports hx of migraines and reports this MULLINS is the same in character however not responding to oral Tylenol. Patient denies fevers or chills, nausea, vomiting, recent head injury, dizziness, neck pain/stiffness, chest pain or palpitations. Patient denies cardiac history. Patient reports she initially was evaluated by PCP for dark- colored urine. She denies dysuria, urinary frequency, urgency, or hematuria. She denies abdominal pain or tenderness. Pt. reports previously ETOH dependent, but has ceased x 3 months. Ddx considered but are not limited to Cellulitis, DVT, varicose vein, PAD,Venous insufficiency, renal insufficiency, just to name a few Vital signs: are WNL, pt. is afebrile H&PE are most consistent with need to r/o acute DVT , Pt. is non-toxic in appearance, NAD. reporting MULLINS, no focal neurological deficits. No evidence to suggest acute abdomen. ORDERS: CMP: Elevated direct and indirect bilirubin. hypokalemia, elevated AST at 205, normal ALT. CBC with Diff: mild anemia PT/PTT: elevated 13.7, PT- 1.3 -UA: 2+ bili with presence of RBC's, few bacteria with moderate squamous cells is most likely contamination. - LE duplex U/s : Negative for acute DVT. ED INTERVENTIONS: - Reglan 10mg IV -Benadryl 50mg IV - 4mg Morphine IV - 40MEq KCL PO -7.5mg Morphine DISPOSITION: at this time pt. will be admitted, Attending physician is facilitating admission. to Dr. Sainz at [facility] for Hepatitis and Edema. Dr. Sainz agreed to admit the pt. and to continue pt. care management. Labs Test 02/03/20 13:10 02/03/20 13:12 02/03/20 13:30 Lipase 52 U/L (73-393) White Blood Count 9.4 K/UL (4.8-10.8) Red Blood Count 3.26 M/UL (4.20-5.40) Hemoglobin 10.9 G/DL (12.0-16.0) Hematocrit 33.2 % (37.0-47.0) Mean Corpuscular Volume 102 FL (80-99) Mean Corpuscular Hemoglobin 33.5 PG (27.0-31.0) Mean Corpuscular Hemoglobin Concent 32.9 G/DL (32.0-36.0) Red Cell Distribution Width 13.4 % (11.6-14.8) Platelet Count 214 K/UL (150-450) Mean Platelet Volume 5.8 FL (6.5-10.1) Neutrophils (%) (Auto) 69.1 % (45.0-75.0) Lymphocytes (%) (Auto) 21.9 % (20.0-45.0) Monocytes (%) (Auto) 8.4 % (1.0-10.0) Eosinophils (%) (Auto) 0.1 % (0.0-3.0) Basophils (%) (Auto) 0.6 % (0.0-2.0) Prothrombin Time 13.7 SEC (9.30-11.50) Prothromb Time International Ratio 1.3 (0.9-1.1) Activated Partial Thromboplast Time 30 SEC (23-33) Sodium Level 145 MMOL/L (136-145) Potassium Level 2.8 MMOL/L (3.5-5.1) Chloride Level 107 MMOL/L (98-107) Carbon Dioxide Level 27 MMOL/L (21-32) Anion Gap 4 mmol/L (5-15) Blood Urea Nitrogen 6 mg/dL (7-18) Creatinine 0.7 MG/DL (0.55-1.30) Estimat Glomerular Filtration Rate > 60 mL/min (>60) Glucose Level 96 MG/DL (74-106) Calcium Level 8.1 MG/DL (8.5-10.1) Total Bilirubin 3.0 MG/DL (0.2-1.0) Direct Bilirubin 2.5 MG/DL (0.0-0.3) Aspartate Amino Transf (AST/SGOT) 203 U/L (15-37) Alanine Aminotransferase (ALT/SGPT) 53 U/L (12-78) Alkaline Phosphatase 325 U/L (46-116) Total Protein 6.8 G/DL (6.4-8.2) Albumin 2.0 G/DL (3.4-5.0) Globulin 4.8 g/dL Albumin/Globulin Ratio 0.4 (1.0-2.7) Urine Color Brown Urine Appearance Slightly cloudy Urine pH 6 (4.5-8.0) Urine Specific Bouse 1.020 (1.005-1.035) Urine Protein 2+ (NEGATIVE) Urine Glucose (UA) Negative (NEGATIVE) Urine Ketones 1+ (NEGATIVE) Urine Blood 1+ (NEGATIVE) Urine Nitrite Negative (NEGATIVE) Urine Bilirubin 2+ (NEGATIVE) Urine Ictotest Positive (NEGATIVE) Urine Urobilinogen 8 MG/DL (0.0-1.0) Urine Leukocyte Esterase 1+ (NEGATIVE) Urine RBC 0-2 /HPF (0 - 2) Urine WBC 2-4 /HPF (0 - 2) Urine Squamous Epithelial Cells Many /LPF (NONE/OCC) Urine Bacteria Few /HPF (NONE) Urine Mucus Moderate /LPF (NONE/OCC) (Bina Ojeda) ER Course Please see above note. Concern over electrolyte abnormalities with evidence of hepatitis. Holding off on vitamin K even though initial ultrasound negative for DVT. Discussed with Dr. Sainz who accepts patient at [facility]. (Awais Lindquist MD) CT/MRI/US Diagnostic Results CT/MRI/US Diagnostic Results #1: Imaging Test Ordered: Venous duplex US of the Left LE Impression " Negative for acute DVT" --per official radiology report- Please see report for specific details. CT/MRI/US Diagnostic Results #2: Imaging Test Ordered: Abdominal US Impression "IMPRESSION: STUDY LIMITED DUE TO BOWEL GAS. ENLARGED FATTY LIVER. STATUS POST CHOLECYSTECTOMY". --Per official radiology report- Please see report for specific details. (Bina Ojeda) Last Vital Signs Date Time Temp Pulse Resp B/P (MAP) Pulse Ox O2 Delivery O2 Flow Rate FiO2 02/03/20 12:51 92 16 Room Air 02/03/20 12:51 97.7 122/84 100 Status: unchanged (Bina Ojeda) Last Vital Signs Date Time Temp Pulse Resp B/P (MAP) Pulse Ox O2 Delivery O2 Flow Rate FiO2 02/03/20 19:34 98.0 78 18 105/78 98 Nasal Cannula Status: improved (Awais Lindquist MD) Disposition: SHORT-TERM HOSP Condition: Serious Signed Out To: Dr. Sainz (Bina Ojeda) Referrals: [facility],REFERRING (PCP) Bina Ojeda Feb 03, 2020 13:50 Awais Lindquist MD Feb 03, 2020 16:49
[2020-02-03 13:52] LABS: INR 1.3 (0.9-1.1)
--- NOTE | 2020-02-03 14:00 | NUR ---
ED Nurse Note: venous duplex being done at bedside.
[2020-02-03 14:01] LABS: APPEARANCE,URINE SLIGHTLY CLOUDY; BILIRUBIN, URINE 2+ (NEGATIVE); COLOR,URINE BROWN; GLUCOSE, URINE (UA) NEGATIVE (NEGATIVE); KETONES,URINE 1+ (NEGATIVE); LEUKOCYTE ESTERASE ,URINE 1+ (NEGATIVE); PH,URINE 6 (4.5-8.0); PROTEIN,URINE 2+ (NEGATIVE); UROBILINOGEN,URINE 8 MG/DL (0.0-1.0)
[2020-02-03 14:02] LABS: ALANINE AMINOTRANSFERASE 53 U/L (12-78); ALBUMIN/GLOBULIN RATIO 0.4 (1.0-2.7); ALKALINE PHOSPHATASE 325 U/L (46-116); ANION GAP 4 mmol/L (5-15); ASPARTATE AMINO TRANSFERASE 203 U/L (15-37); BLOOD UREA NITROGEN 6 mg/dL (7-18); CALCIUM 8.1 MG/DL (8.5-10.1); CARBON DIOXIDE 27 MMOL/L (21-32); CHLORIDE 107 MMOL/L (98-107); CREATININE 0.7 MG/DL (0.55-1.30); POTASSIUM 2.8 MMOL/L (3.5-5.1); SODIUM 145 MMOL/L (136-145)
[2020-02-03 14:03] LABS: BILIRUBIN,DIRECT 2.5 MG/DL (0.0-0.3)
[2020-02-03 14:13] LABS: NITRITE,URINE NEGATIVE (NEGATIVE)
--- NOTE | 2020-02-03 14:13 | Diagnostic Imaging Report ---
EXAM: ULTRASOUND Venous Duplex Lower Ext Uni CLINICAL HISTORY: Leg pain and edema. COMPARISON: None TECHNIQUE: Doppler examination include grayscale images obtained with and without compression, and color and spectral doppler analysis. FINDINGS: Doppler examination shows normal spontaneity, phasicity, compressibility in the bilateral lower extremities. There is no thrombus identified by grayscale. Normal color and spectral flow is identified. There is no evidence of valvular incompetency or insufficiency. IMPRESSION: UNREMARKABLE VENOUS DUPLEX.
[2020-02-03] MEDS ORDERED: DiphenhydrAMINE 50mg/ml Inj IVP ONE (14:15)
[2020-02-03] MEDS ORDERED: Metoclopramide 10mg/2ml Inj IVP ONE (14:15)
[2020-02-03] MEDS ORDERED: PAXIL10 MG ORAL (14:55)
[2020-02-03] MEDS ORDERED: IMITREX50 MG ORAL (14:55)
[2020-02-03] MEDS ORDERED: HYDROCHLOROTHIA25 MG ORAL (14:55)
[2020-02-03 15:10] VITALS: BP 116/80
[2020-02-03] MEDS ORDERED: Morphine Sulfate 4mg/ml Inj (IV USE ONLY) IVP ONE (15:30)
--- NOTE | 2020-02-03 15:51 | NUR ---
ED Nurse Note: pt seen in bed resting, no acute distress is noted. will continue to monitor.
--- NOTE | 2020-02-03 16:35 | NUR ---
ED Nurse Note: Report given to BLANCA Velez from [place] comm
[2020-02-03] MEDS ORDERED: HYDROcodone/Acetamin 7.5/325 tab ORAL ONE (16:45)
--- NOTE | 2020-02-03 16:48 | Diagnostic Imaging Report ---
EXAM: ULTRASOUND US ABD Complete CLINICAL HISTORY: Abdominal pain. History of cholecystectomy 2018. COMPARISON: CT abdomen pelvis 11/16/2019 TECHNIQUE: Ultrasound examination of the abdomen includes grayscale images, and color and spectral doppler analysis. FINDINGS: The liver is enlarged and diffusely fatty. Spleen is within normal limits. Gallbladder is absent compatible with surgical history. Common bile duct measures 6 mm. The pancreas is not well seen due to bowel gas. No hydronephrosis is noted bilaterally. Aorta and cava also mostly obscured by bowel gas. IMPRESSION: STUDY LIMITED DUE TO BOWEL GAS. ENLARGED FATTY LIVER. STATUS POST CHOLECYSTECTOMY
[2020-02-03 17:21] VITALS: BP 125/77
--- NOTE | 2020-02-03 17:21 | NUR ---
ED Nurse Note: pt seen in bed, playing with her phone. no acute distress is noted. awaiting for [facility]. will continue to monitor.
--- NOTE | 2020-02-03 19:22 | NUR ---
HAND-OFF: Report given to BLANCA Valentine. Endorsed plan of care.
--- NOTE | 2020-02-03 19:23 | NUR ---
ED Nurse Note: Report received from MARNIE RIOS
--- NOTE | 2020-02-03 19:32 | NUR ---
ED Nurse Note: Bedside report given to [facility] personnel
[2020-02-03 19:34] VITALS: BP 105/78
--- NOTE | 2020-02-03 19:44 | NUR ---
ER DISCHARGE NOTE: Patient was picked up by [facility] ambulance going to [facility] via BLS transport. Patients packet given to ambulance personnel. Patient is cleared to be transferred per ERMD, pt is aox4, on room air, with stable vital signs. pt took all belongings. Pt has iv access on left ac g20. Patient tranferred safely to the ambulance.
== END 2020-02-03 19:53 | disposition other institution (70) ==
LOC: EMR 13:24
DX: R60.0 Localized edema (principal); E87.6 Hypokalemia; K75.9 Inflammatory liver disease, unspecified; I10 Essential (primary) hypertension; E03.9 Hypothyroidism, unspecified; R51 Headache; R79.89 Other specified abnormal findings of blood chemistry; D64.9 Anemia, unspecified; K76.0 Fatty (change of) liver, not elsewhere classified; Z90.49 Acquired absence of other specified parts of digestive tract
CPT/HCPCS: 36415; 76700; 80053; 81003; 82248; 83690; 85025; 85610; 85730; 93971; 96361; 96374; 96375; J1200; J2270; J2765; J7030; J7040; Z7502; 99284; J8499